=== PATIENT | male | born 1945 | race Caucasian/White ===

== ENCOUNTER 2018-03-15 10:46 | Emergency (ER) | payer MEDICARE, OTHER ==
--- NOTE | 2018-03-15 11:08 | UC ---
Eye Complaint HPI - HPI Summary HPI Summary: This patient is a 72 year old M presenting to [facility] with a chief complaint of R eyelid swelling that began yesterday. The patient rates the pain 0/10 in severity. Symptoms aggravated by nothing. Symptoms alleviated by nothing. Patient reports eyes feeling pruritic and clear drainage from eye. Patient denies fever and sore throat. - History of Current Complaint Chief Complaint: UCEye Stated Complaint: EYE COMPLAINT Time Seen by Provider: 03/15/18 11:02 Hx Obtained From: Patient Onset/Duration: Sudden Onset, Lasting Days, Still Present Timing: Constant Severity Initially: Mild Severity Currently: Mild Pain Intensity: 0 Pain Scale Used: 0-10 Numeric Aggravating Factor(s): Nothing Alleviating Factor(s): Nothing Associated Signs And Symptoms: Positive: Drainage (Clear). Negative: Fever - Allergies/Home Medications Allergies/Adverse Reactions: Allergies Allergy/AdvReac Type Severity Reaction Status Date / Time No Known Allergies Allergy Verified 03/15/18 10:58 Home Medications: Home Medications Atorvastatin* [Lipitor*] 10 mg PO 1700 03/15/18 [History Confirmed 03/15/18] Carvedilol TAB* [Coreg TAB*] 6.25 mg PO BID 03/15/18 [History Confirmed 03/15/18 ] Spiriva Inhaler DEVICE* [Tiotropium Inhaler DEVICE*] 0 inh 03/15/18 [History] Theophylline TAB* [Jose Dur*] 300 mg PO DAILY 03/15/18 [History Confirmed ] Tiotropium CAP.INH* [Spiriva CAP.INH*] 1 cap.inh INH DAILY 03/15/18 [History Confirmed 03/15/18] PMH/Surg Hx/FS Hx/Imm Hx Previously Healthy: No Cardiovascular History: Hypertension Respiratory History: COPD - Surgical History Surgical History: Yes - Family History Known Family History: Negative: Cardiac Disease, Diabetes - Social History Occupation: Retired Lives: With Family Alcohol Use: None Substance Use Type: None Smoking Status (MU): Never Smoked Tobacco Review of Systems Constitutional: Other - Negative fever Eyes: Drainage, Other - Positive eyes feeling pruritic and R eyelid swelling ENT: Other - Negative sore throat All Other Systems Reviewed And Are Negative: Yes Physical Exam - Summary Physical Exam Summary: General: well-appearing, no pain distress Skin: warm, color reflects adequate perfusion, dry Head: normal Eyes: EOMI, FELIX ENT: R upper eyelid is swollen. Some yellow discharge. Scleral injection. Neck: supple, nontender Respiratory: CTA, breath sounds present Cardiovascular: RRR Abdomen: soft, nontender Bowel: present Musculoskeletal: normal, strength/ROM intact Neurological: sensory/motor intact, A&O x3 Psychological: affect/mood appropriate Triage Information Reviewed: Yes Vital Signs: Initial Vital Signs Temp 98.0 F 03/15/18 10:48 Pulse 74 03/15/18 10:48 Resp 18 03/15/18 10:48 BP 152/77 03/15/18 10:48 Pulse Ox 93 03/15/18 10:48 Vital Signs Reviewed: Yes Eye Complaint Course/Dx - Differential Dx/Diagnosis Provider Diagnoses: RIGHT STYE AND CONJUNCTIVITIS Discharge - Sign-Out/Discharge Documenting (check all that apply): Patient Departure All imaging exams completed and their final reports reviewed: No Studies - Discharge Plan Condition: Stable Disposition: HOME Prescriptions: Tobramycin 0.3% OPHTH.MONTSERRAT* 1 drop RIGHT EYE Q4H #1 btl Patient Education Materials: Stye (ED), Conjunctivitis (ED) Referrals: Kalyn Singh [Primary Care Provider] - Additional Instructions: FOLLOW UP WITH YOUR PRIMARY CARE DOCTOR OR OPHTHALMOLOGY IF NOT COMPLETELY IMPROVED. GET RECHECKED FOR ANY WORSENING OF YOUR CONDITION OR QUESTIONS OR CONCERNS. - Billing Disposition and Condition Condition: STABLE Disposition: Home - Attestation Statements Document Initiated by Scribe: Yes Documenting Scribe: Fidelia Abarca Provider For Whom Scribe is Documenting (Include Credential): Venkat Berry MD Scribe Attestation: I, Fidelia Abarca, scribed for Venkat Berry MD on 03/15/18 at 1142. Scribe Documentation Reviewed: Yes Provider Attestation: The documentation as recorded by the loriibFidelia hanna accurately reflects the service I personally performed and the decisions made by me, Venkat Berry MD
== END 2018-03-15 11:15 | disposition home or self-care (01) ==
LOC: UCEAST 10:46
DX: H00.023 Hordeolum internum right eye, unspecified eyelid (principal); H10.9 Unspecified conjunctivitis; I10 Essential (primary) hypertension; J44.9 Chronic obstructive pulmonary disease, unspecified
CPT/HCPCS: 99202; G0463

== ENCOUNTER 2018-06-28 10:17 | Emergency (ER) | payer MEDICARE ==
[2018-06-28 10:25] VITALS: BP 147/83
--- NOTE | 2018-06-28 10:45 | UC ---
Skin Complaint HPI - HPI Summary HPI Summary: 72-year-old male comes in to clinic today with a chief complaint of a rash. It started right behind the right here a few days ago. Since then it spread to the occiput it's the lower part of the right base of the right neck and it's spreads down in a dermatomal distribution to the upper sternum. It's mildly painful it's not itching. The initial rash started out as blisters which broke. No fevers or chills feels well otherwise. The rash does not go near the right I. - History of Current Complaint Chief Complaint: UCRash Time Seen by Provider: 06/28/18 10:29 Stated Complaint: EYE AND SKIN COMPLAINT Pain Intensity: 0 - Allergy/Home Medications Allergies/Adverse Reactions: Allergies Allergy/AdvReac Type Severity Reaction Status Date / Time bee venom protein (honey bee) Allergy anaph Verified 06/28/18 10:26 PMH/Surg Hx/FS Hx/Imm Hx Endocrine History: Dyslipidemia Cardiovascular History: Hypertension Respiratory History: COPD - Surgical History Surgical History: None - Family History Known Family History: Negative: Cardiac Disease, Diabetes - Social History Alcohol Use: None Substance Use Type: None Smoking Status (MU): Never Smoked Tobacco Review of Systems All Other Systems Reviewed And Are Negative: Yes Constitutional: Positive: Negative Skin: Positive: Rash - SEE HPI Eyes: Positive: Negative ENT: Positive: Negative Respiratory: Positive: Negative Cardiovascular: Positive: Negative Gastrointestinal: Positive: Negative Motor: Positive: Negative Neurovascular: Positive: Negative Musculoskeletal: Positive: Negative Neurological: Positive: Negative Psychological: Positive: Negative Is Patient Immunocompromised?: No Physical Exam Triage Information Reviewed: Yes Appearance: Well-Appearing, No Pain Distress, Well-Nourished Vital Signs: Initial Vital Signs Temp 98.2 F 06/28/18 10:22 Pulse 80 06/28/18 10:22 Resp 17 06/28/18 10:22 BP 147/83 06/28/18 10:22 Pulse Ox 100 06/28/18 10:22 Vital Signs Reviewed: Yes Eye Exam: Normal Eyes: Positive: Conjunctiva Clear. Negative: Conjunctiva Inflamed ENT: Negative: Nasal congestion Neck: Positive: Supple Respiratory Exam: Normal Respiratory: Positive: Lungs clear, Normal breath sounds, No respiratory distress Cardiovascular: Positive: RRR Musculoskeletal Exam: Normal Musculoskeletal: Positive: Strength Intact, ROM Intact Neurological Exam: Normal Neurological: Positive: Alert, Muscle Tone Normal Psychological Exam: Normal Psychological: Positive: Normal Response To Family, Age Appropriate Behavior Skin: Positive: Rashes - On the right side of the patient's neck starting at the occiput and spreading the dermatomal distribution to the upper sternum there is an erythematous base with multiple clear fluid-filled vesicles. The original site of the rash now has some scabbing over the top of it. No drainage. Course/Dx - Course Course Of Treatment: We will treat with VALacyclovir 1 g by mouth 3 times a day for one week. Patient was concerned about the possibility of a bacterial infection therefore we'll go ahead and treat with Keflex and also topical mupirocin. The plan will be to follow-up with his primary care doctor this week. Recheck sooner if he worsens or has any other questions or concerns. - Diagnoses Provider Diagnosis: Shingles, Rash Discharge - Sign-Out/Discharge Documenting (check all that apply): Patient Departure All imaging exams completed and their final reports reviewed: No Studies - Discharge Plan Condition: Stable Disposition: HOME Prescriptions: Cephalexin CAP* [Keflex CAP*] 500 mg PO QID #40 cap Mupirocin 1 applic TOPICAL BID #22 gm Valacyclovir HCl [Valacyclovir] 1 gm PO TID #21 tab Patient Education Materials: Shingles (ED), Acute Rash (ED) Referrals: Kalyn Singh [Primary Care Provider] - Additional Instructions: FOLLOW UP WITH YOUR DOCTOR THIS WEEK. GET RECHECKED FOR ANY WORSENING OF YOUR CONDITION OR QUESTIONS OR CONCERNS. - Billing Disposition and Condition Condition: STABLE Disposition: Home
== END 2018-06-28 10:56 | disposition home or self-care (01) ==
LOC: UCEAST 10:17
DX: B02.9 Zoster without complications (principal); Z91.030 Bee allergy status
CPT/HCPCS: 99212; G0463

== ENCOUNTER 2019-01-07 13:28 | Emergency (ER) | payer MEDICARE, OTHER ==
[2019-01-07 13:34] VITALS: BP 143/70
--- NOTE | 2019-01-07 13:53 | UC ---
Skin Complaint HPI - HPI Summary HPI Summary: Noticed itchy rash on arms a few days ago and noticed it was poison nan. he accidentally rubbed his face and has noticed similar rash on R eyelids, R side of face. has tried calomine w/ no effect. no change in vision. he feels its improving today. - History of Current Complaint Chief Complaint: UCRash Time Seen by Provider: 01/07/19 13:30 Stated Complaint: EYE COMPLAINT Hx Obtained From: Patient Onset/Duration: Sudden Onset Pain Intensity: 0 Pain Scale Used: 0-10 Numeric Location: Face, Hand (Right), Hand (Left) Character: Pruritus, Redness, Painful Aggravating Factor(s): Clothing Alleviating Factor(s): Nothing - Allergy/Home Medications Allergies/Adverse Reactions: Allergies Allergy/AdvReac Type Severity Reaction Status Date / Time bee venom protein (honey bee) Allergy anaph Verified 01/07/19 13:34 PMH/Surg Hx/FS Hx/Imm Hx Cardiovascular History: Cardiac Disease, Hypertension Respiratory History: COPD - Surgical History Surgical History: None - Family History Known Family History: Negative: Cardiac Disease, Diabetes - Social History Alcohol Use: None Substance Use Type: None Smoking Status (MU): Never Smoked Tobacco Review of Systems All Other Systems Reviewed And Are Negative: Yes Constitutional: Negative: Fever Skin: Positive: Rash Respiratory: Positive: Negative Cardiovascular: Positive: Negative Physical Exam Triage Information Reviewed: Yes Appearance: Well-Appearing Vital Signs: Initial Vital Signs Temp 98 F 01/07/19 13:31 Pulse 82 01/07/19 13:31 Resp 18 01/07/19 13:31 BP 143/70 01/07/19 13:31 Pulse Ox 100 01/07/19 13:31 Vital Signs Reviewed: Yes Eyes: Positive: Conjunctiva Clear, Other: - R eyelid mildly swollen and erythematous w/ blistering on R side of face. Skin: Positive: Other - various blisters and inflammation on R/ L arms, face, legs. Course/Dx - Course Course Of Treatment: Worsening poison nan/pruritic rash and face/eyelids a concern given degree of swelling. Able to see and he reports improvement at any rate. Today will give 5 day burst w/ steroids to help w/ inflammation. ok to cont. to use topical otc tx. vitals good. - Differential Diagnoses - Skin Complaint Differential Diagnoses: Poison Nan, Poison [place] - Diagnoses Provider Diagnosis: Poison nan Discharge - Sign-Out/Discharge Documenting (check all that apply): Patient Departure All imaging exams completed and their final reports reviewed: No Studies - Discharge Plan Condition: Good Disposition: HOME Prescriptions: predniSONE [Prednisone 20 MG TAB] 20 mg PO DAILY 5 Days #5 tablet Patient Education Materials: Poison Nan (ED) Referrals: Kalyn Singh [Primary Care Provider] - Additional Instructions: if worsening please return - Billing Disposition and Condition Condition: GOOD Disposition: Home
== END 2019-01-07 15:17 | disposition home or self-care (01) ==
LOC: UCEAST 13:28
DX: L23.7 Allergic contact dermatitis due to plants, except food (principal); I10 Essential (primary) hypertension; J44.9 Chronic obstructive pulmonary disease, unspecified
CPT/HCPCS: 99212; G0463

== ENCOUNTER 2021-11-30 12:50 | Inpatient (IN) ==
[2021-11-30] MEDS ORDERED: Albuterol/Ipratropium NEB.SOL (2.5/0.5 MG) 3 ML NEB.SOLN ONE ×2 (13:08→13:09)
[2021-11-30] MEDS ORDERED: Furosemide 20 mg/2 ml IV VIAL IV ONE (13:23)
[2021-11-30] MEDS ORDERED: Magnesium Sulfate 2 gm BAG 2 GM/50 ML BAG IVPB ONE (13:24)
[2021-11-30] MEDS ORDERED: Albuterol/Ipratropium NEB.SOL (2.5/0.5 MG) 3 ML NEB.SOLN INH ONE ×2 (13:24→14:52)
[2021-11-30 14:40] LABS: ABS Eosinophils 0.1 10^3/ul (0-0.6); ABS Lymphocytes 0.8 10^3/ul (1.0-4.8); ABS Monocytes 0.4 10^3/ul (0-0.8); ABS Neutrophils 3.6 10^3/ul (1.5-7.7); Eosinophil % 2.5 %; Hematocrit 43 % (42-52); Hemoglobin 13.3 g/dL (14.0-18.0); Lymphocyte % 15.9 %; Mean Corpuscular HGB Conc 31 g/dL (31-36); Mean Corpuscular Hemoglobin 29 pg (27-31); Mean Corpuscular Volume 94 fL (80-94); Mean Platelet Volume 9.4 fL (7.4-10.4); Nucleated Red Blood Cells % 0.3; Platelet Count 185 10^3/uL (150-450); Red Blood Count 4.61 10^6 /uL (4.18-5.48); Red Cell Distribution Width 17 % (10-15); White Blood Count 4.9 10^3/uL (3.5-10.8)
[2021-11-30 14:47] LABS: Albumin 3.9 g/dL (3.2-5.2); Calcium 8.5 mg/dL (8.6-10.3); Total Bilirubin 0.4 mg/dL (0.2-1.0)
[2021-11-30 14:48] LABS: Potassium 5.1 mmol/L (3.5-5.0)
[2021-11-30 14:52] LABS: Globulin 2.9 g/dL (2-4); Total Protein 6.8 g/dL (6.4-8.9); eGFR CKD-EPI 35.7 (>60)
[2021-11-30 14:53] LABS: Albumin/Globulin Ratio 1.3 (1-3)
[2021-11-30 15:04] LABS: High Sensitivity Troponin 1 Hr 8 pg/mL (<20)
[2021-11-30] MEDS ORDERED: cefTRIAXone 1 gm/50 mL D5W 1 GM/50 ML BAG IV ONE (16:52)
[2021-11-30] MEDS ORDERED: Azithromycin 500 mg/250 ml NS 500 MG/250 ML BAG IVPB ONE (16:52)
[2021-11-30] MEDS ORDERED: Furosemide 40 mg/4 ml IV VIAL IV SLOW PU ONE (17:34)
[2021-11-30] MEDS ORDERED: Ondansetron 4 mg VIAL 2 MG/ML 2 ml VIAL IV PRN (18:03)
[2021-11-30] MEDS ORDERED: Sodium Polystyrene ORAL.SUSP 15 GM/60 ML BTL PO ONE (18:55)
[2021-11-30] MEDS ORDERED: Enoxaparin 30 MG/0.3 ML SYR SUBCUT SCH (19:00)
[2021-11-30] MEDS ORDERED: Patiromer POWDER 8.4 GM PAK PO ONE (19:03)
[2021-12-01 05:46] LABS: ABS Lymphocytes 0.4 10^3/ul (1.0-4.8); ABS Monocytes 0.1 10^3/ul (0-0.8); ABS Neutrophils 3.9 10^3/ul (1.5-7.7); Hematocrit 41 % (42-52); Hemoglobin 12.3 g/dL (14.0-18.0); Lymphocyte % 8.7 %; Mean Corpuscular HGB Conc 30 g/dL (31-36); Mean Corpuscular Hemoglobin 28 pg (27-31); Mean Corpuscular Volume 94 fL (80-94); Mean Platelet Volume 9.1 fL (7.4-10.4); Nucleated Red Blood Cells % 0.2; Platelet Count 170 10^3/uL (150-450); Red Blood Count 4.37 10^6 /uL (4.18-5.48); Red Cell Distribution Width 17 % (10-15); White Blood Count 4.3 10^3/uL (3.5-10.8)
[2021-12-01 06:04] LABS: Calcium 8.4 mg/dL (8.6-10.3); Magnesium 2.6 mg/dL (1.9-2.7); eGFR CKD-EPI 33.7 (>60)
[2021-12-01 06:09] LABS: Potassium 5.6 mmol/L (3.5-5.0)
[2021-12-01] MEDS ORDERED: Sodium Polystyrene ORAL.SUSP 15 GM/60 ML BTL PO ONE (07:18)
[2021-12-01] MEDS ORDERED: Furosemide 40 mg/4 ml IV VIAL IV SLOW PU ONE (07:35)
[2021-12-01] MEDS: SPIRIVA Respimat (tiotropium) 2.5 mcg/inh Inhaler INH SCH (08:09)
[2021-12-01] MEDS: Furosemide 40 mg/4 ml IV VIAL IV SLOW PU SCH ×2 (08:53→16:29)
[2021-12-01 09:42] LABS: TSH Ultra Thyroid Stim Horm 1.37 mcIU/mL (0.34-5.60)
[2021-12-01 16:09] LABS: Calcium 8.3 mg/dL (8.6-10.3); Potassium 4.6 mmol/L (3.5-5.0); eGFR CKD-EPI 33.5 (>60)
[2021-12-02 05:41] LABS: Hematocrit 43 % (42-52); Mean Corpuscular HGB Conc 31 g/dL (31-36); Mean Corpuscular Hemoglobin 29 pg (27-31); Mean Corpuscular Volume 94 fL (80-94); Platelet Count 190 10^3/uL (150-450); Red Blood Count 4.51 10^6 /uL (4.18-5.48); Red Cell Distribution Width 16 % (10-15)
[2021-12-02 06:04] LABS: Calcium 7.9 mg/dL (8.6-10.3); Magnesium 2.2 mg/dL (1.9-2.7); Potassium 4.7 mmol/L (3.5-5.0); eGFR CKD-EPI 33.7 (>60)
[2021-12-02] MEDS: SPIRIVA Respimat (tiotropium) 2.5 mcg/inh Inhaler INH SCH (07:28)
[2021-12-02] MEDS: Furosemide 40 mg/4 ml IV VIAL IV SLOW PU SCH ×2 (07:36→17:54)
[2021-12-02] MEDS: Mometasone/Formoter 200/5 MDI INH SCH (20:30)
[2021-12-03] MEDS: Furosemide 40 mg/4 ml IV VIAL IV SLOW PU SCH ×2 (08:28→16:27)
[2021-12-03] MEDS: SPIRIVA Respimat (tiotropium) 2.5 mcg/inh Inhaler INH SCH (08:45)
[2021-12-03] MEDS: Mometasone/Formoter 200/5 MDI INH SCH ×2 (08:50→19:58)
[2021-12-03 11:13] LABS: Calcium 7.8 mg/dL (8.6-10.3); Potassium 3.9 mmol/L (3.5-5.0); eGFR CKD-EPI 32.2 (>60)
[2021-12-03] MEDS: Senna TAB 8.6 mg TAB PO SCH (19:47)
[2021-12-04 06:07] LABS: Hematocrit 45 % (42-52); Hemoglobin 13.9 g/dL (14.0-18.0); Mean Corpuscular HGB Conc 31 g/dL (31-36); Mean Corpuscular Hemoglobin 29 pg (27-31); Mean Corpuscular Volume 93 fL (80-94); Mean Platelet Volume 8.7 fL (7.4-10.4); Platelet Count 167 10^3/uL (150-450); Red Blood Count 4.88 10^6 /uL (4.18-5.48); Red Cell Distribution Width 16 % (10-15); White Blood Count 5.5 10^3/uL (3.5-10.8)
[2021-12-04 06:26] LABS: Calcium 8.1 mg/dL (8.6-10.3); Potassium 4.1 mmol/L (3.5-5.0); eGFR CKD-EPI 33.1 (>60)
[2021-12-04] MEDS: SPIRIVA Respimat (tiotropium) 2.5 mcg/inh Inhaler INH SCH (07:06)
[2021-12-04] MEDS: Mometasone/Formoter 200/5 MDI INH SCH ×2 (07:10→19:39)
[2021-12-04] MEDS: Senna TAB 8.6 mg TAB PO SCH ×2 (08:10→20:49)
[2021-12-04] MEDS: Furosemide 40 mg/4 ml IV VIAL IV SLOW PU SCH (08:11)
[2021-12-05 06:36] LABS: Hematocrit 43 % (42-52); Hemoglobin 13.2 g/dL (14.0-18.0); Mean Corpuscular HGB Conc 31 g/dL (31-36); Mean Corpuscular Hemoglobin 29 pg (27-31); Mean Corpuscular Volume 93 fL (80-94); Mean Platelet Volume 8.9 fL (7.4-10.4); Platelet Count 159 10^3/uL (150-450); Red Blood Count 4.57 10^6 /uL (4.18-5.48); Red Cell Distribution Width 16 % (10-15); White Blood Count 5.6 10^3/uL (3.5-10.8)
[2021-12-05 07:05] LABS: Calcium 8.1 mg/dL (8.6-10.3); Potassium 4.1 mmol/L (3.5-5.0); eGFR CKD-EPI 34.2 (>60)
[2021-12-05] MEDS ORDERED: Furosemide 40 mg/4 ml IV VIAL IV SLOW PU SCH (08:00)
[2021-12-05] MEDS: SPIRIVA Respimat (tiotropium) 2.5 mcg/inh Inhaler INH SCH (08:02)
[2021-12-05] MEDS: Mometasone/Formoter 200/5 MDI INH SCH (08:02)
[2021-12-05] MEDS: Senna TAB 8.6 mg TAB PO SCH (09:16)
[2021-12-05 16:51] VITALS: BP 102/58
== END 2021-12-05 18:42 | disposition home or self-care (01) | DRG 291 ==
LOC: ED 12:50 → EDHOLD 18:03 → SUATTDRO 18:03 → MEDTELE 20:56
PROVIDERS: ADMIT Internal Medicine; ATTEND Internal Medicine